=== PATIENT | male | born 1960 | race Caucasian/White ===

== ENCOUNTER 2019-10-13 20:51 | Emergency (ER) | payer BC, SELFPAY ==
[2019-10-13 20:52] VITALS: BP 143/83; PULSE 78; RESP 20; TEMP 36.7; O2SAT 96; BMI 22.7
--- NOTE | 2019-10-13 21:51 | ED.VIS.EYE ---
History of Present Illness Chief Complaint: Eye Problem Narrative: Patient presenting for evaluation secondary to blood in his left eye. Patient states that he was driving from [place] when he noticed blood in his left eye. There was no trauma associated with this. Patient does not work around grinding materials, does not believe that he got any chemicals or foreign bodies in it. Patient is not sure at what point it started. He denies any pain. He denies any visual changes. He is never had any prior similar symptoms. Denies any history of hypertension or anticoagulant use. No injury to the eye. Review of systems otherwise negative. Past Medical History - Allergies and Home Meds Allergies/Adverse Reactions: Allergies morphine Adverse Reaction (Verified 10/13/19 20:53) Vomiting Primary Care Physician: LARRY SANTOS [Other] Past Medical History: None Smoking Status: Never smoker Review of Systems Eyes: Reports: - - Blood in the white part of his left eye. No visual changes. Skin: Denies: Rash Neurological: Denies: Headache Physical Exam Eyelid: Normal inspection, Left eyelid everted, No foreign body Left Conjunctiva/Sclera: Subconjunctival hemorrhage Left Cornea: Normal inspection, No foreign body Extraocular Motion: Normal exam, No pain Pupils: PERRL Vital Signs/Narrative: Vital Signs Temp Pulse Resp BP Pulse Ox 10/13/19 20:52 98.1 F 78 20 H 143/83 H 96 Inital Vital Signs reviewed: Yes General: Well nourished, Well developed Head: Normocephalic, Atraumatic, - - No evidence of vesicular rash on the face ENT: Moist mucous membranes, No rhinorrhea Cardiovascular: Regular rate, Regular rhythm, No murmurs Respiratory: No distress, CTA bilaterally, Chest nontender Abdomen: Soft, Nontender, Nondistended, Normal bowel sounds Back: Nontender, Normal Inspection Extremities: Nontender, No edema Skin: Normal color, No rash Neurological: Alert, Oriented x3, Cranial nerves II-XII grossly intact, Normal Strength, Normal Sensation Psychological: Normal affect Diagnostic/Tx/Re-eval - Medical Decision Making Patient presented with findings consistent with a subconjunctival hemorrhage. No concern for foreign body or globe rupture. Patient was given reassurance and was discharged. Disposition: Home ED Disposition - Plan for ED Patient: Disposition: Home or Assisted Living Diagnosis: Subconjunctival hemorrhage of left eye Instructions: Subconjunctival Hemorrhage Referrals: LARRY SANTOS [Other] - As Needed
== END 2019-10-13 21:58 | disposition home or self-care (01) ==
PROVIDERS: Emergency Provider Emergency Medicine
DX: H11.32 Conjunctival hemorrhage, left eye (principal)
CPT/HCPCS: 99283